=== PATIENT | male | born 1955 | race Caucasian/White ===

== ENCOUNTER 2024-01-25 15:25 | Outpatient (CLI) | payer MEDICARE ==
[2024-01-25 17:12] LABS: #Basophils 0.05 10x3/uL (0.0-0.2); #Eosinphils 0.12 10x3/uL (0.0-0.5); #Neutrophils 2.53 10x3/uL (1.5-8.4); %Eosinophils 2.3 % (0.0-6.0); %Lymphocytes 31.5 % (18.0-47.0); %Monocytes 15.6 % (0.0-10.0); %Neutrophils 49.2 % (40.0-75.0); Hematocrit 43.6 % (38.8-50.0); Hemoglobin 15.5 g/dL (13.5-17.5); Mean Corpuscular HGB CONC 35.6 g/dL (32.0-36.0); Mean Corpuscular Hemoglobin 33.1 pg (27.0-33.0); Mean Corpuscular Volume 93.2 fL (81.2-95.1); Mean Platelet Volume 10.2 fL (7.4-10.4); Platelet Count 262 10x3/uL (150-450); RBC Distribution Width 12.2 % (11.5-14.5); Red Blood Cell (RBC) Count 4.68 10x6/uL (4.32-5.72); White Blood Cell (WBC) Count 5.1 10x3/uL (3.5-10.5)
[2024-01-25 17:51] LABS: ALT (SGPT) 27 U/L (8-55); AST (SGOT) 21 U/L (5-34); Albumin 4.1 g/dL (3.4-4.8); Alkaline Phosphatase 49 U/L (40-110); Anion Gap 15 mmol/L (10-20); BUN (Urea Nitrogen) 16 mg/dL (8.4-25.7); Bilirubin, Total 1.2 mg/dL (0.2-1.2); Calc. Creatinine Clearance 0 mL/min (70-130); Calcium 9.2 mg/dL (7.8-10.44); Carbon Dioxide 23 mmol/L (23-31); Chloride 105 mmol/L (98-107); Estimated GFR 95; Glucose 81 mg/dL (80-115); Potassium 4.2 mmol/L (3.5-5.1); Protein, Total 7.1 g/dL (5.8-8.1); Sodium 139 mmol/L (136-145)
== END 2024-01-25 15:26 | disposition home or self-care (01) ==
LOC: LABBT 15:25
PROVIDERS: ATTEND Surgery
DX: Z01.818 Encounter for other preprocedural examination (principal); K42.9 Umbilical hernia without obstruction or gangrene
CPT/HCPCS: 80053; 85025; 93005; 93010

== ENCOUNTER 2024-01-28 05:58 | Day surgery (SDC) | payer MEDICARE ==
[2024-01-25 16:05] VITALS: BMI 25.7
[2024-01-28] MEDS ORDERED: Sodium Chloride 0.9% 100 ML ONE (06:22)
[2024-01-28] MEDS ORDERED: Lidocaine 1% MPF 2 ML VIAL ONE (06:22)
[2024-01-28] MEDS ORDERED: CEFAZOLIN 2 GM VIAL ONE (06:22)
[2024-01-28] MEDS ORDERED: EPINEPHrine 1 MG/ML VIAL ONE (07:03)
[2024-01-28] MEDS ORDERED: Bupivacaine 0.25% HCL 30 ML VIAL ONE (07:03)
[2024-01-28] MEDS ORDERED: Famotidine/PF 20 mg/2ml Vial ONE (07:12)
[2024-01-28] MEDS ORDERED: PROPOFOL 20 ML ONE (07:15)
[2024-01-28] MEDS ORDERED: fentaNYL 50 mcg/mL 1 mL Vial ONE ×2 (07:15→07:42)
[2024-01-28] MEDS ORDERED: Lidocaine 2% PF 5 ML VIAL ONE (07:18)
[2024-01-28] MEDS ORDERED: Ondansetron PF 4 MG/2 ML Vial ONE (07:42)
[2024-01-28] MEDS ORDERED: Ketorolac Tromethamine 30 MG (1 mL) VIAL ONE (07:42)
[2024-01-28] MEDS ORDERED: Dexamethasone 4 mg/ml Vial ONE (07:42)
[2024-01-28] MEDS ORDERED: ePHEDrine Sulfate 50 MG/10 ML VIAL ONE (07:47)
[2024-01-28] MEDS ORDERED: traMADol HCl 50 MG TAB ONE (10:17)
== END 2024-01-28 11:20 | disposition home or self-care (01) ==
LOC: SDC 05:58
PROVIDERS: ATTEND Surgery
PROC: 0WUF0JZ Supplement Abdominal Wall with Synthetic Substitute, Open Approach (ICD-10-PCS; principal; 2024-01-28)
DX: K42.9 Umbilical hernia without obstruction or gangrene (principal); E78.5 Hyperlipidemia, unspecified; Z79.899 Other long term (current) drug therapy; Z91.041 Radiographic dye allergy status; Z91.013 Allergy to seafood; Z88.5 Allergy status to narcotic agent
CPT/HCPCS: 49591; A6258; C1781; J0171; J0665; J1100; J1885; J2001; J2405; J2704; J3010; J3490; S0028

== ENCOUNTER 2024-06-03 07:25 | Outpatient (CLI) | payer MEDICARE ==
[2024-06-03] MEDS ORDERED: Iopamidol 370 76% 100 ML VIAL ONE (10:14)
== END 2024-06-03 07:26 | disposition home or self-care (01) ==
LOC: CT 07:25
PROVIDERS: ATTEND Family Medicine
DX: R42 Dizziness and giddiness (principal)
CPT/HCPCS: 36415; 70496; 82565; Q9967